=== PATIENT | female | born 1955 | race Caucasian/White ===

== ENCOUNTER 2018-08-05 19:47 | Inpatient (IN) ==
--- NOTE | 2018-08-05 20:58 | ED ---
HPI General Chief Complaint: Fall Stated Complaint: fall-L hip Time Seen by Provider: 08/05/18 20:46 Source: patient Mode of arrival: wheelchair Limitations: no limitations History of Present Illness HPI Narrative: 62-year-old white female presents emergency department for evaluation of left hip pain after a fall this afternoon sometime around 5:30 PM. She lives in [facility]. They opted to come to [place] for evaluation. The patient states that she has not been able to bear weight since the injury. She states that she was stepping down 2 sets of steps when her left hip popped causing her to fall down onto her hands and knees. She did not strike her head. She does not have any neck or back pain. No syncope. No chest pain or shortness of breath. She states the pain in her hip is moderate but can be severe with movement and palpation. Patient denies any numbness or tingling. Past medical history: Hypertension Surgical history: Denies Social history: Positive EtOH, positive tobacco Related Data Home Medications Medication Instructions Recorded Confirmed metoprolol tartrate 50 mg PO BID 08/05/18 08/05/18 Allergies Allergy/AdvReac Type Severity Reaction Status Date / Time No Known Allergies Allergy Verified 08/05/18 21:23 Review of Systems ROS: all other systems reviewed are negative [facility] Social History Social History Substance History: No History of Abuse Second Hand Smoke Exposure: Yes Smoking Status: Current every day smoker Tobacco Type: Cigarettes How Often Do You Have a Drink Containing Alcohol: 2 to 3 times a week Exam Narrative Exam Narrative: GENERAL: Well-developed, well-nourished in no apparent distress. Nontoxic appearing. HEAD: Normocephalic, atraumatic. EYES: Pupils equal round and reactive. Extraocular motions intact. No scleral icterus. No injection or drainage. ENT: Nose clear. Throat without erythema, tonsillar hypertrophy or exudate. Uvula midline. Airway patent. NECK: Trachea midline. Supple, nontender, moves head freely. No central bony tenderness or spasm. CARDIOVASCULAR: Regular rate and rhythm without murmurs, gallops, or rubs. RESPIRATORY: Clear to auscultation. Breath sounds equal bilaterally. No wheezes , rales, or rhonchi. GASTROINTESTINAL: Abdomen soft, non-tender, nondistended. No hepato-splenomegaly , or palpable masses. No guarding. EXTREMITIES: No clubbing, cyanosis, or edema. Patient complains of pain in the left hip. She has decreased range of motion due to pain. There is no obvious shortening or rotation. No pain in the knee, ankle or foot. She has intact sensation good distal pulses. She has abrasions over both knees and over the right wrist and palm. BACK: Nontender without deformity. No flank tenderness. NEUROLOGICAL: Awake, alert and oriented x 3 .Cranial nerves grossly intact. Motor and sensory grossly within normal limits. Normal speech. Course Initial Documented Vital Signs Temperature 98.7 F 08/05/18 20:40 Pulse Rate 72 08/05/18 20:40 Respiratory Rate 16 08/05/18 20:40 Blood Pressure 117/75 08/05/18 20:40 Pulse Oximetry 100 08/05/18 20:40 Last Documented Vital Signs Temperature 98.7 F 08/05/18 20:40 Pulse Rate 72 08/05/18 20:40 Respiratory Rate 18 08/05/18 20:57 Blood Pressure 117/75 08/05/18 20:40 Pulse Oximetry 100 08/05/18 20:40 Medical Decision Making MDM Narrative Medical decision making narrative: Patient's abrasions are cleansed and dressed by the nursing staff. Patient is given [place] 5 mg p.o. X-ray of the left hip. X-ray reveals a possible greater trochanter fracture. This is confirmed by CT. Patient has a large amount of arthritis as well as cystic structures in the acetabulum and the femoral head. The case has been discussed with Dr. Guerra. She has recommended that the patient be admitted to the hospital for pain control and orthopedic evaluation. I discussed this with the patient who is agreed to stay for admission. I discussed the case with Dr. Rodrigues who is agreed to place the patient in observation and have orthopedic consult. Medical Screen Exam Complete: Yes Emergency Medical Condition: Yes Differential Diagnosis Differential Diagnosis: MDM: High Differential diagnoses: Fracture, sprain, strain, dislocation, contusion, neurovascular injury Lab Data Result diagrams: 08/05/18 22:58 08/05/18 22:58 Lab Results 08/05/18 08/05/18 08/05/18 Range/Units 22:58 22:58 22:58 WBC 6.7 (4.0-11.0) th/mm3 RBC 3.91 L (4.00-5.30) mil/mm3 Hgb 13.5 (11.6-15.3) gm/dL Hct 38.6 (35.0-46.0) % MCV 98.8 (80.0-100.0) fL MCH 34.6 H (27.0-34.0) pg MCHC 35.0 (32.0-36.0) % RDW 13.5 (11.6-17.2) % Plt Count 212 (150-450) th/mm3 MPV 8.1 (7.0-11.0) fL Neut % (Auto) 58.2 (16.0-70.0) % Lymph % (Auto) 31.5 (9.0-44.0) % [place] % (Auto) 7.7 (0.0-8.0) % Eos % (Auto) 1.7 (0.0-4.0) % Baso % (Auto) 0.9 (0.0-2.0) % Neut # (Auto) 3.9 (1.8-7.7) th/mm3 Lymph # (Auto) 2.1 (1.0-4.8) th/mm3 [place] # (Auto) 0.5 (0.0-0.9) th/mm3 Eos # (Auto) 0.1 (0.0-0.4) th/mm3 Baso # (Auto) 0.1 (0.0-0.2) th/mm3 WBC Differential . Differential Comment Auto diff final PT 9.6 L (9.8-11.6) sec INR 0.9 Ratio Sodium 137 (136-145) meq/L Potassium 3.7 (3.5-5.1) meq/L Chloride 103 (98-107) meq/L Carbon Dioxide 25.3 (21.0-32.0) meq/L Anion Gap 9 (5-15) meq/L BUN 22 H (7-18) mg/dL Creatinine 0.81 (0.50-1.00) mg/dL Estimated GFR 72 L (>89) mL/min Random Glucose 74 (74-106) mg/dL Calcium 8.9 (8.5-10.1) mg/dL Total Bilirubin 0.2 (0.2-1.0) mg/dL AST 27 (15-37) U/L ALT 20 (10-53) U/L Alkaline Phosphatase 115 (45-117) U/L Total Protein 8.0 (6.4-8.2) g/dL Albumin 3.5 (3.4-5.0) g/dL Imaging Data Radiologist's impression: Hip X-Ray 08/05/18 20:51 CONCLUSION: Minimal area of cortical disruption seen at the lateral aspect of the greater trochanter. Subtle fracture in may be present. Chronic severe degenerative change. Hip CT 08/05/18 21:26 CONCLUSION: 1. Mildly displaced fracture of the greater trochanter without visible extension into the femoral neck. 2. Advanced osteoarthritis at the left hip joint with marked joint space narrowing, sclerosis and extensive subchondral cyst or geode formation. Discharge Plan Discharge Disposition Patient Disposition: 30 Still Patient Discharge Condition Condition: Stable Physicians Team ED Provider: Linda Guerra ED Midlevel Provider: Melchor Jeter Primary Care Provider: UNKNOWN, Attending Provider: Faiza Rodrigues Other Providers: Adria Ha Status ED Status: Left Department Discharge Information Discharge Date/Time: 08/06/18 00:01
--- NOTE | 2018-08-05 21:23 | XR ---
EXAM DATE: 08/05/2018 9:10 PM EDT AGE/SEX: 62 years / Female INDICATIONS: Fall. CLINICAL DATA: This is the patient's initial encounter. Patient reports that signs and symptoms have been present for 1 day and indicates a pain score of 8/10. MEDICAL/SURGICAL HISTORY: None. None. COMPARISON: No prior exams available for comparison. FINDINGS: There is chronic flattening of the superior aspect of the left femoral head. There is some flattening of the superior aspect of the left acetabulum. The left hip joint space is severely narrowed superio rly. There is cystic change at the superior acetabulum and superior aspect of the femoral head. There are some hypertrophic change at the superior lateral aspect of the femoral head. There are small 4 m m bony densities seen inferior to the femoral head likely related to either hypertrophic change or lo ose bodies. On the AP view, there is questionable area of cortical disruption seen at the lateral aspect of the g reater trochanter. No other potential fracture is seen on this plain film examination. CONCLUSION: Minimal area of cortical disruption seen at the lateral aspect of the greater trochanter. Subtle frac ture in may be present. Chronic severe degenerative change. Electronically signed by: Adam Tamayo MD 08/05/2018 9:22 PM EDT
--- NOTE | 2018-08-05 22:17 | CT ---
EXAM DATE: 08/05/2018 10:08 PM EDT AGE/SEX: 62 years / Female INDICATIONS: Fall today, left hip pain. CLINICAL DATA: This is the patient's initial encounter. Patient reports that signs and symptoms have been present for 1 day and indicates a pain score of 7/10. MEDICAL/SURGICAL HISTORY: Hypertension. None. RADIATION DOSE: 7.49 CTDI (mGy) COMPARISON: No prior exams available for comparison. TECHNIQUE: Multiple contiguous axial images were acquired using a multirow detector CT scanner witho ut contrast. Multiplanar reconstruction was performed in the sagittal and coronal planes. Using aut omated exposure control and adjustment of the mA and/or kV according to patient size, radiation dose was kept as low as reasonably achievable to obtain optimal diagnostic quality images. DICOM format i mage data is available electronically for review and comparison. FINDINGS: There is a mildly displaced fracture through the greater trochanter. No extension into the femoral ne ck is identified. There is advanced osteoarthritis at the hip joint with some lateral subluxation. Th ere is marked joint space narrowing, sclerosis and extensive subchondral cyst or geode formation with osteophytes. Bones are mildly osteopenic. CONCLUSION: 1. Mildly displaced fracture of the greater trochanter without visible extension into the femoral ne ck. 2. Advanced osteoarthritis at the left hip joint with marked joint space narrowing, sclerosis and ex tensive subchondral cyst or geode formation. Electronically signed by: Melchor Layton MD 08/05/2018 10:15 PM EDT
[2018-08-05] MEDS ORDERED: Morphine Inj 4 MG/ML Vial IV.PUSH ONE (22:33)
[2018-08-05] MEDS ORDERED: Morphine Sulfate Inj 2 MG/ML Vial IV.PUSH PRN (22:39)
[2018-08-05] MEDS ORDERED: Acetaminophen 325 MG Tablet PO PRN (22:40)
[2018-08-05] MEDS ORDERED: Bisacodyl 10 MG Supp RECTAL PRN (22:40)
--- NOTE | 2018-08-05 22:42 | P.HPIM ---
History of Present Illness Primary Care Physician: UNKNOWN History of Present Illness: This is a 62-year-old female with a PMH of HTN and Tobacco Abuse who was brought to the ER for left hip pain after a fall. Patient states she has had chronic left hip pain for several years, no previous injury or trauma. Today, states she heard a "pop" then fell to the floor. No LOC or head trauma. Reports severe pain, 10/10, non-radiating, worse w/ movement, unable to bare weight. On arrival, BP 117/75, HR 72, O2 sat 100% on RA, Afebrile. Labs pending. Hip X-ray minimal area of cortical disruption at greater trochanter, subtle fracture may be present. CT Hip mildly displaced fracture of greater trochanter without extension into the femoral neck, advanced arthritis of left hip joint with marked joint space narrowing. S/p Morphine w/ some improvement in pain complaints. - Diagnosis (1) Fall (2) Hip fracture, left (3) Tobacco abuse Review of Systems PAST FAMILY HISTORY: Reviewed. No h/o DM or CAD All other systems reviewed negative except as stated in HPI [facility] - History History Provided By: Patient - Medical History Medical History: Medical History (Last Reviewed 08/05/18 @ 21:00 by MERRY Delcid) Hypertension - Surgical History Surgical History: Surgical History (Last Reviewed 08/05/18 @ 21:00 by MERRY Delcid) No history of previous surgery - Tobacco History Tobacco Use In Past 30 Days: Yes Smoking Status: Current every day smoker Tobacco Type: Cigarettes - Alcohol History How Often Do You Have a Drink Containing Alcohol: 2 to 4 times a month - Immunization History Tetanus Immunization: <5 Years Medications and Allergies Active Medications: Active Medications Acetaminophen (Tylenol) 650 mg PO Q4H PRN PRN Reason: Temp > 100.4 Hydrocodone Bitart/Acetaminophen ([place] 5/325) 1 tab PO Q4H PRN PRN Reason: PAIN 3-5 Al Hydroxide/Mg Hydroxide (Milk Of Magnesia Liq) 30 ml PO Q12H PRN PRN Reason: Mild Constipation Bisacodyl (Dulcolax Supp) 10 mg RECTAL DAILY PRN PRN Reason: SEVERE CONSITIPATION Sodium Chloride (Ns Inj) 1,000 mls @ 100 mls/hr IV.CONT .Q10H LANI Lactulose (Lactulose Liq) 30 ml PO DAILY PRN PRN Reason: SEVERE CONSITIPATION Morphine Sulfate (Morphine Inj) 2 mg IV.PUSH Q4H PRN PRN Reason: PAIN 6-10 Ondansetron HCl (Zofran Inj) 4 mg IV.PUSH Q6H PRN PRN Reason: NAUSEA OR VOMITING Senna/Docusate Sodium (Judy-Colace) 1 tab PO BID LANI Sennosides (Senokot) 17.2 mg PO Q12H PRN PRN Reason: Moderate Constipation Allergies Allergy/AdvReac Type Severity Reaction Status Date / Time No Known Allergies Allergy Verified 08/05/18 21:23 Exam Vital signs: Vital Signs 08/05/18 20:40 08/05/18 20:57 Temperature 98.7 F Pulse Rate 72 Respiratory Rate 16 18 Blood Pressure 117/75 Pulse Oximetry 100 Intake & Output 08/05/18 08/05/18 08/06/18 06:59 18:59 06:59 Weight 47.627 kg Narrative: PE: GENERAL: Middle-aged white female in no acute distress. Smells of tobacco. Friend at bedside. SKIN: Focused skin assessment warm and dry. HEENT: PERRLA, EOMI. No scleral icterus or conjunctival pallor. No lid lag or facial droop. CARDIOVASCULAR: Regular rate and rhythm. No obvious murmurs to auscultation. No chest tenderness to palpation. RESPIRATORY: No obvious rhonchi or wheezing. Clear to auscultation. Breath sounds equal bilaterally. GASTROINTESTINAL: Abdomen soft, non-tender, nondistended. BS normal. MUSCULOSKELETAL: Extremities without clubbing, cyanosis, or edema. No obvious deformities. Decreased ROM of LLE due to injury. Pulses intact. NEUROLOGICAL: Awake, alert and oriented x4. No focal neurologic deficits. Moving both upper and lower extremities spontaneously. PSYCHIATRIC: Appropriate mood and affect. Insight and judgment normal. Results - Imaging Impressions Hip X-Ray 08/05/18 20:51 CONCLUSION: Minimal area of cortical disruption seen at the lateral aspect of the greater trochanter. Subtle fracture in may be present. Chronic severe degenerative change. Hip CT 08/05/18 21:26 CONCLUSION: 1. Mildly displaced fracture of the greater trochanter without visible extension into the femoral neck. 2. Advanced osteoarthritis at the left hip joint with marked joint space narrowing, sclerosis and extensive subchondral cyst or geode formation. Caprini VTE Risk Assessment Caprini VTE Risk Assessment: No/Low Risk (score <= 1) Caprini Risk Assessment Model: Point Value = 1 Point Value = 2 Point Value = 3 Point Value = 5 Age 41-60 Minor surgery BMI > 25 kg/m2 Swollen legs Varicose veins or History of unexplained or recurrent spontaneous Oral contraceptives or hormone replacement Sepsis (< 1 month) Serious lung disease, including pneumonia (< 1 month) Abnormal pulmonary function Acute myocardial infarction Congestive heart failure (< 1 month) History of inflammatory bowel disease Medical patient at bed rest Age 61-74 Arthroscopic surgery Major open surgery (> 45 min) Laparoscopic surgery (> 45 min) Malignancy Confined to bed (> 72 hours) Immobilizing plaster cast Central venous access Age >= 75 History of VTE Family history of VTE Factor V Leiden Prothrombin [id number] Lupus anticoagulant Anticardiolipin antibodies Elevated serum homocysteine Heparin-induced thrombocytopenia Other congenital or acquired thrombophilia Stroke (< 1 month) Elective arthroplasty Hip, pelvis, or leg fracture Acute spinal cord injury (< 1 month) Prophylaxis Regimen: Total Risk Factor Score Risk Level Prophylaxis Regimen 0-1 Low Early ambulation 2 Moderate Order ONE of the following: *Sequential Compression Device (SCD) *Heparin 5000 units SQ BID 3-4 Higher Order ONE of the following medications: *Heparin 5000 units SQ TID *Enoxaparin/Lovenox 40 mg SQ daily (WT < 150 kg, CrCl > 30 mL/min) *Enoxaparin/Lovenox 30 mg SQ daily (WT < 150 kg, CrCl > 10-29 mL/min) *Enoxaparin/Lovenox 30 mg SQ BID (WT < 150 kg, CrCl > 30 mL/min) AND/OR *Sequential Compression Device (SCD) 5 or more Highest Order ONE of the following medications: *Heparin 5000 units SQ TID (Preferred with Epidurals) *Enoxaparin/Lovenox 40 mg SQ daily (WT < 150 kg, CrCl > 30 mL/min) *Enoxaparin/Lovenox 30 mg SQ daily (WT < 150 kg, CrCl > 10-29 mL/min) *Enoxaparin/Lovenox 30 mg SQ BID (WT < 150 kg, CrCl > 30 mL/min) AND *Sequential Compression Device (SCD) Assessment and Plan - Assessment (1) Fall Code(s): W19.XXXA - Unspecified fall, initial encounter Status: Acute (2) Hip fracture, left Code(s): S72.002A - Fracture of unspecified part of neck of left femur, initial encounter for closed fracture Status: Acute (3) Tobacco abuse Code(s): Z72.0 - Tobacco use Status: Acute - Plan A/P: 1. Fall: s/p mechanical fall, no LOC or head trauma, no other injuries reported. 2. Left Hip Fx: X-ray w/ possible subtle fracture, CT Hip w/ mildly displaced fracture of greater trochanter without extension into femoral neck, advanced osteoarthritis of left hip joint w/ marked joint space narrowing, images reviewed. Consult Ortho for further eval/intervention. NPO, IVF, analgesics/ antiemetics as needed. Follow up pre-op labs. 3. Tobacco Abuse: Pt counselled. NicoDerm prn if needed. 4. DVT Prophylaxis: Anticoagulation post op 5. Social work for d/c planning as needed. 6. Case discussed w/ ER physician at length, labs/records/imaging reviewed by me.
[2018-08-05] MEDS ORDERED: Sodium Chloride 0.9% 2 ML Flush PRN IV.FLUSH (22:45)
[2018-08-05] MEDS: Sod Chloride 0.9% Inj 1,000 ML IV.CONT SCH (23:53)
[2018-08-06 00:20] LABS: Baso # (Auto) 0.1 th/mm3 (0.0-0.2); Baso % (Auto) 0.9 % (0.0-2.0); Eos # (Auto) 0.1 th/mm3 (0.0-0.4); Eos % (Auto) 1.7 % (0.0-4.0); Hematocrit 38.6 % (35.0-46.0); Hemoglobin 13.5 gm/dL (11.6-15.3); Lymph # (Auto) 2.1 th/mm3 (1.0-4.8); Lymph % (Auto) 31.5 % (9.0-44.0); Mean Corpuscular Hemoglobin 34.6 pg (27.0-34.0); Mean Corpuscular Volume 98.8 fL (80.0-100.0); Mean Platelet Volume 8.1 fL (7.0-11.0); Mono # (Auto) 0.5 th/mm3 (0.0-0.9); Mono % (Auto) 7.7 % (0.0-8.0); Neut # (Auto) 3.9 th/mm3 (1.8-7.7); Neut % (Auto) 58.2 % (16.0-70.0); Platelet Count 212 th/mm3 (150-450); Red Blood Count 3.91 mil/mm3 (4.00-5.30); Red Cell Distribution Width 13.5 % (11.6-17.2); White Blood Count 6.7 th/mm3 (4.0-11.0)
[2018-08-06 00:29] LABS: INR 0.9 Ratio; Prothrombin Time 9.6 sec (9.8-11.6)
[2018-08-06 00:39] LABS: Albumin 3.5 g/dL (3.4-5.0); Anion Gap 9 meq/L (5-15); Aspartate Aminotransferase 27 U/L (15-37); Blood Urea Nitrogen 22 mg/dL (7-18); Calcium 8.9 mg/dL (8.5-10.1); Carbon Dioxide 25.3 meq/L (21.0-32.0); Chloride 103 meq/L (98-107); Glomerular Filtration Rate 72 mL/min (>89); Glucose,Random 74 mg/dL (74-106); Potassium 3.7 meq/L (3.5-5.1); Sodium 137 meq/L (136-145)
[2018-08-06 00:41] LABS: Alanine Aminotransferase 20 U/L (10-53)
[2018-08-06 00:43] LABS: Alkaline Phosphatase 115 U/L (45-117)
--- NOTE | 2018-08-06 08:54 | P.CONOP ---
[facility] Orthopedics Consult Note - [facility] Consult date: 08/06/18 Consult reason: fracture Chief complaint: Left greater trochanteric fracture Narrative: 62-year-old female with a past medical history of hypertension and tobacco abuse presented to the emergency department yesterday evening after a "fall" incident in regards to her left hip. Patient states that she knows that she has a "bad hip" and she tries to "nurse it", since patient does not have insurance. Patient states yesterday she felt a "pop" and subsequently was unable to put pressure and/or ambulate on her left hip. She did not describe the episode as a trip and fall to me. Patient states she has been able to successfully ambulate with a walker independently to use the restroom last night and this morning. Patient is somewhat dismissive and is not very interested in follow-up care. Review of Systems All other systems reviewed negative except as stated in [facility] - History History Provided By: Patient - Medical History Medical History: Medical History (Last Reviewed 08/05/18 @ 21:00 by MERRY Delcid) Hypertension - Surgical History Surgical History: Surgical History (Last Reviewed 08/05/18 @ 21:00 by MERRY Delcid) No history of previous surgery - Tobacco History Second Hand Smoke Exposure: Yes Tobacco Use In Past 30 Days: Yes Smoking Status: Current every day smoker Tobacco Type: Cigarettes - Alcohol History How Often Do You Have a Drink Containing Alcohol: 2 to 3 times a week - Substance Use History Substance History: No History of Abuse - Immunization History Tetanus Immunization: <5 Years Hx Influenza Vaccine This Season: No Medications and Allergies Active Medications: Active Medications Acetaminophen (Tylenol) 650 mg PO Q4H PRN PRN Reason: Temp > 100.4 Hydrocodone Bitart/Acetaminophen ([place] 5/325) 1 tab PO Q4H PRN PRN Reason: PAIN 3-5 Al Hydroxide/Mg Hydroxide (Milk Of Magnesia Liq) 30 ml PO Q12H PRN PRN Reason: Mild Constipation Bisacodyl (Dulcolax Supp) 10 mg RECTAL DAILY PRN PRN Reason: SEVERE CONSITIPATION Sodium Chloride (Ns Inj) 1,000 mls @ 100 mls/hr IV.CONT .Q10H [facility] Last Admin: 08/05/18 23:53 Dose: 100 mls/hr Lactulose (Lactulose Liq) 30 ml PO DAILY PRN PRN Reason: SEVERE CONSITIPATION Morphine Sulfate (Morphine Inj) 2 mg IV.PUSH Q4H PRN PRN Reason: PAIN 6-10 Ondansetron HCl (Zofran Inj) 4 mg IV.PUSH Q6H PRN PRN Reason: NAUSEA OR VOMITING Senna/Docusate Sodium (Judy-Colace) [address] [facility] Sennosides (Senokot) 17.2 mg PO Q12H PRN PRN Reason: Moderate Constipation Sodium Chloride (Ns Flush) 2 ml IV.FLUSH BID LANI Sodium Chloride (Ns Flush) 2 ml IV.FLUSH PRN PRN PRN Reason: FLUSH AFTER USING IV ACCESS Allergies Allergy/AdvReac Type Severity Reaction Status Date / Time No Known Allergies Allergy Verified 08/05/18 21:23 Home Medications Medication Instructions Recorded Confirmed Type metoprolol tartrate 50 mg PO BID 08/05/18 08/05/18 History Exam Vital signs: Vital Signs 08/05/18 20:40 08/05/18 20:57 08/06/18 00:20 Temperature 98.7 F 97.8 F Pulse Rate 72 60 Respiratory Rate 16 18 18 Blood Pressure 117/75 104/56 L Pulse Oximetry 100 93 L 08/06/18 06:30 Temperature Pulse Rate Respiratory Rate 17 Blood Pressure Pulse Oximetry Intake & Output 08/05/18 08/06/18 08/06/18 18:59 06:59 18:59 Weight 49 kg Other: # Voids 1 Date of Last Bowel Movement 08/05/18 Weight On Admission 48.761 kg Narrative: LLE: Mild palpable tenderness over the greater trochanteric region, slight pain with passive range of motion of hip, patient is able to successfully stand on her own, leg is in normal alignment, negative Homans sign, no calf pain, neurovascularly intact No other muscular skeletal injuries identified Results - Labs Result Diagrams: 08/05/18 22:58 08/05/18 22:58 Labs: Laboratory Results - last 24 hr 08/05/18 08/05/18 08/05/18 22:58 22:58 22:58 WBC 6.7 RBC 3.91 L Hgb 13.5 Hct 38.6 MCV 98.8 MCH 34.6 H MCHC 35.0 RDW 13.5 Plt Count 212 MPV 8.1 Neut % (Auto) 58.2 Lymph % (Auto) 31.5 [place] % (Auto) 7.7 Eos % (Auto) 1.7 Baso % (Auto) 0.9 Neut # (Auto) 3.9 Lymph # (Auto) 2.1 [place] # (Auto) 0.5 Eos # (Auto) 0.1 Baso # (Auto) 0.1 WBC Differential . Differential Comment Auto diff final PT 9.6 L INR 0.9 Sodium 137 Potassium 3.7 Chloride 103 Carbon Dioxide 25.3 Anion Gap 9 BUN 22 H Creatinine 0.81 Estimated GFR 72 L Random Glucose 74 Calcium 8.9 Total Bilirubin 0.2 AST 27 ALT 20 Alkaline Phosphatase 115 Total Protein 8.0 Albumin 3.5 - Diagnostic results Imaging: Impressions Hip X-Ray 08/05/18 20:51 CONCLUSION: Minimal area of cortical disruption seen at the lateral aspect of the greater trochanter. Subtle fracture in may be present. Chronic severe degenerative change. Hip CT 08/05/18 21:26 CONCLUSION: 1. Mildly displaced fracture of the greater trochanter without visible extension into the femoral neck. 2. Advanced osteoarthritis at the left hip joint with marked joint space narrowing, sclerosis and extensive subchondral cyst or geode formation. Assessment and Plan - Assessment and Plan The findings were discussed with the patient. Dr Adria Ha has reviewed images and details of this case. Recommendations are given for non-operative management at this time. Progress physical therapy for mobilization and pain control. Weight bearing as tolerated, encourage passive range of motion, do not encourage aggressive active range of motion. Continue pain control. Recommended orthopedic follow up in 7-10 days. Further displacement of the fracture site may require fixation. The possibility of future surgical treatment was discussed with the patient in detail, the patient acknowledges full understanding. 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 Okay to feed patient. Orthopedic clear for discharge at this time. Appreciate orthopedic involvement in patient's care.
[2018-08-06] MEDS ORDERED: Sodium Chloride 0.9% 2 ML Flush BID IV.FLUSH SCH (09:00)
[2018-08-06] MEDS ORDERED: Senna/Docusate Sodium 8.6/50 MG Tablet PO SCH (09:00)
[2018-08-06] MEDS: Sod Chloride 0.9% Inj 1,000 ML IV.CONT SCH (09:06)
[2018-08-06] MEDS ORDERED: Enoxaparin Inj 40 MG/0.4 ML Syringe SQ SCH (09:15)
--- NOTE | 2018-08-06 09:24 | P.PN ---
Subjective Interval history: Follow up for fall/left hip pain-patient seen and examined, complains of left groin pain with hip abduction. Does not want to move. Has been out of bed ambulating with walker. Patient refusing to take pain medicine, after discussion she agrees to take p.o. narcotic before PT evaluation. Was seen by orthopedic surgery this morning, nonoperative management was recommended. Patient wants to go home today. No chest pain, no shortness of breath, no nausea, no vomiting, diarrhea. No fever. States that she can go and stay with her mother. Patient lives alone Physical Exam Vital signs: Vital Signs 08/05/18 20:40 08/05/18 20:57 08/06/18 00:20 Temperature 98.7 F 97.8 F Pulse Rate 72 60 Respiratory Rate 16 18 18 Blood Pressure 117/75 104/56 L Pulse Oximetry 100 93 L 08/06/18 06:30 08/06/18 08:00 Temperature 97.8 F Pulse Rate 67 Respiratory Rate 17 16 Blood Pressure 160/67 H Pulse Oximetry 97 Intake & Output 08/05/18 08/06/18 08/06/18 18:59 06:59 18:59 Weight 49 kg Other: # Voids 1 Date of Last Bowel Movement 08/05/18 Weight On Admission 48.761 kg Narrative: GENERAL: Well-nourished, well-developed patient in no apparent distress. SKIN: Warm and dry. HEAD: Atraumatic. Normocephalic. EYES: Pupils equal and round. No scleral icterus. No injection or drainage. ENT: No nasal bleeding or discharge. Mucous membranes pink and moist. NECK: Trachea midline. No JVD. CARDIOVASCULAR: Regular rate and rhythm. RESPIRATORY: Breath sounds diminished at bases. Nonproductive cough. GASTROINTESTINAL: Abdomen soft, non-tender, nondistended. Hepatic and splenic margins not palpable. MUSCULOSKELETAL: Pain with passive range of motion during hip abduction, no deformity noted. Intact left pedal pulse 2+. Intact sensation to the left foot. No other joint abnormalities. NEUROLOGICAL: Awake and alert. No obvious cranial nerve deficits. Motor grossly within normal limits. Five out of 5 muscle strength in the arms and legs. Normal speech. PSYCHIATRIC: Appropriate mood and affect; insight and judgment normal. Results - Labs CBC & Chem 7: 08/05/18 22:58 08/05/18 22:58 Laboratory Results - last 24 hr 08/05/18 08/05/18 08/05/18 22:58 22:58 22:58 WBC 6.7 RBC 3.91 L Hgb 13.5 Hct 38.6 MCV 98.8 MCH 34.6 H MCHC 35.0 RDW 13.5 Plt Count 212 MPV 8.1 Neut % (Auto) 58.2 Lymph % (Auto) 31.5 [place] % (Auto) 7.7 Eos % (Auto) 1.7 Baso % (Auto) 0.9 Neut # (Auto) 3.9 Lymph # (Auto) 2.1 [place] # (Auto) 0.5 Eos # (Auto) 0.1 Baso # (Auto) 0.1 WBC Differential . Differential Comment Auto diff final PT 9.6 L INR 0.9 Sodium 137 Potassium 3.7 Chloride 103 Carbon Dioxide 25.3 Anion Gap 9 BUN 22 H Creatinine 0.81 Estimated GFR 72 L Random Glucose 74 Calcium 8.9 Total Bilirubin 0.2 AST 27 ALT 20 Alkaline Phosphatase 115 Total Protein 8.0 Albumin 3.5 - Imaging Impressions Hip X-Ray 08/05/18 20:51 CONCLUSION: Minimal area of cortical disruption seen at the lateral aspect of the greater trochanter. Subtle fracture in may be present. Chronic severe degenerative change. Hip CT 08/05/18 21:26 CONCLUSION: 1. Mildly displaced fracture of the greater trochanter without visible extension into the femoral neck. 2. Advanced osteoarthritis at the left hip joint with marked joint space narrowing, sclerosis and extensive subchondral cyst or geode formation. Assessment and Plan - Assessment (1) Fall Code(s): W19.XXXA - Unspecified fall, initial encounter Status: Acute (2) Hip fracture, left Code(s): S72.002A - Fracture of unspecified part of neck of left femur, initial encounter for closed fracture Status: Acute (3) Tobacco abuse Code(s): Z72.0 - Tobacco use Status: Acute - Plan 62-year-old female with a PMH of HTN and Tobacco Abuse who was brought to the ER for left hip pain after a fall. Patient states she has had chronic left hip pain for several years, no previous injury or trauma. States she heard a "pop" then fell to the floor. No LOC or head trauma. Reports severe pain, 10/10, non -radiating, worse w/ movement, unable to bare weight. On arrival, BP 117/75, HR 72, O2 sat 100% on RA, Afebrile. Labs pending. Hip X-ray minimal area of cortical disruption at greater trochanter, subtle fracture may be present. CT Hip mildly displaced fracture of greater trochanter without extension into the femoral neck, advanced arthritis of left hip joint with marked joint space narrowing. S/p Morphine w/ some improvement in pain complaints. Fall- s/p mechanical fall, no LOC or head trauma, no other injuries reported. Left Hip Fx: X-ray w/ possible subtle fracture, CT Hip w/ mildly displaced fracture of greater trochanter without extension into femoral neck, advanced osteoarthritis of left hip joint w/ marked joint space narrowing, images reviewed. -Appreciate also input, nonoperative management recommended. Can follow-up in 7 -10 days. -Resume diet Continue with pain management Physical therapy evaluation Tobacco Abuse: Pt counselled. -NicoDerm prn if needed. Hypertension, blood pressure stable Continue with metoprolol DVT Prophylaxis: SCDs for now, if pt. remains, will be put on [employer] Case management consultation for discharge planning. Patient has no payer source, she will be given a walker. We will wait for PT evaluation to make discharge plan Patient insisted on going home today, states that she can stay with her mother. Code Status: Full code Discussed Condition With: RN, pt, CM Discharge Planning: Poss dc home today after PT eval. [employer] Prescription Drug Monitoring Database has been queried and verified prior to prescribing the controlled substance. Acute pain exception. This patient has normal, predicted, physiological, and time limited response to an adverse mechanical stimulus associated with surgery, trauma, or acute illness as described in my notes. There is a lack of alternative treatment options other than to include the prescribed narcotic treatment for this condition. Last prescription was tramadol 50 mg, 120 tabs for 30 days March 15, 2018. [employer] Prescription Drug Monitoring Database has been queried and verified prior to prescribing the controlled subsection. Patient is having significant pain caused by [mildly displaced fracture of greater trochanter, status post mechanical fall] which will last more than 3 days. Trial of alternative treatment options other than prescribed opioids has not helped. I believe that it is medically necessary to treat the patients pain because it is affecting patients ability to [perform activities of daily living, ambulation.].
[2018-08-06 11:24] LABS: Bilirubin,Urine Negative (Negative); Clarity,Urine Clear (Clear); Color,Urine Yellow (Yellw/Straw); Glucose,Urine (UA) Negative (Negative); Leukocyte Esterase,Urine Negative (Negative); Nitrite,Urine Negative (Negative); Specific Gravity,Urine 1.012 (1.002-1.035)
--- NOTE | 2018-08-06 17:46 | P.DS ---
Date of admission: 08/05/18 22:40 Primary care physician: UNKNOWN Attending physician on discharge: Edgar Mitchell Anticipated date of discharge: 08/06/18 Brief History from admission: This is a 62-year-old female with a PMH of HTN and Tobacco Abuse who was brought to the ER for left hip pain after a fall. Patient states she has had chronic left hip pain for several years, no previous injury or trauma. Today, states she heard a "pop" then fell to the floor. No LOC or head trauma. Reports severe pain, 10/10, non-radiating, worse w/ movement, unable to bare weight. On arrival, BP 117/75, HR 72, O2 sat 100% on RA, Afebrile. Labs pending. Hip X-ray minimal area of cortical disruption at greater trochanter, subtle fracture may be present. CT Hip mildly displaced fracture of greater trochanter without extension into the femoral neck, advanced arthritis of left hip joint with marked joint space narrowing. S/p Morphine w/ some improvement in pain complaints. DS: Diagnosis - Discharge Diagnosis (1) Fall Status: Acute (2) Hip fracture, left Status: Acute (3) Tobacco abuse Status: Acute DS: Medications - Discharge Medications Prescriptions: tramadol 50 mg PO Q6H 7 Days #28 tab DS: Summary Hospital Course: 62-year-old female with a PMH of HTN and Tobacco Abuse who was brought to the ER for left hip pain after a fall. Patient states she has had chronic left hip pain for several years, no previous injury or trauma. States she heard a "pop" then fell to the floor. No LOC or head trauma. Reported severe pain, 10/10, non-radiating, worse w/ movement, unable to bare weight. On arrival, BP 117/75 , HR 72, O2 sat 100% on RA, Afebrile. Labs okay. Hip X-ray minimal area of cortical disruption at greater trochanter, subtle fracture may be present. CT Hip mildly displaced fracture of greater trochanter without extension into the femoral neck, advanced arthritis of left hip joint with marked joint space narrowing. S/p Morphine w/ some improvement in pain complaints. Patient kept n.p.o. overnight. Orthopedic consulted, put on appropriate pain management. She was evaluated by orthopedic, nonoperative management was recommended. Patient will eventually need hip replacement however it could be done as as elective. She was to follow-up in 7-10 days. Physical therapy was consulted, they assisted with ambulating patient. Patient was able to ambulate with walker. Pt. wanted to go home. She was given a walker and PT provided instructions on mobility. She was counselled to stop smoking. She was reluctant. She was discharged home in stable condition. - Time Spent with Patient Total time spent providing and/or coordinating discharge services: Less than 30 minutes - Quality: VTE Deep Vein Thrombosis/Pulmonary Embolism Present on Admission: No Exam Vital signs: Vital Signs 08/05/18 20:40 08/05/18 20:57 08/06/18 00:20 Temperature 98.7 F 97.8 F Pulse Rate 72 60 Respiratory Rate 16 18 18 Blood Pressure 117/75 104/56 L Pulse Oximetry 100 93 L 08/06/18 06:30 08/06/18 08:00 08/06/18 12:00 Temperature 97.8 F 98.5 F Pulse Rate 67 52 L Respiratory Rate 17 16 16 Blood Pressure 160/67 H 137/72 Pulse Oximetry 97 98 Intake & Output 08/05/18 08/06/18 08/06/18 18:59 06:59 18:59 Weight 49 kg Other: # Voids 1 Date of Last Bowel Movement 08/05/18 08/05/18 Weight On Admission 48.761 kg Results Procedures completed during hospitalization: none Labs on day of discharge: Labs from last 24 hours 08/06/18 08/05/18 08/05/18 11:00 22:58 22:58 WBC RBC Hgb Hct MCV MCH MCHC RDW Plt Count MPV Neut % (Auto) Lymph % (Auto) [place] % (Auto) Eos % (Auto) Baso % (Auto) Neut # (Auto) Lymph # (Auto) [place] # (Auto) Eos # (Auto) Baso # (Auto) WBC Differential Differential Comment PT 9.6 L INR 0.9 Sodium 137 Potassium 3.7 Chloride 103 Carbon Dioxide 25.3 Anion Gap 9 BUN 22 H Creatinine 0.81 Estimated GFR 72 L Random Glucose 74 Calcium 8.9 Total Bilirubin 0.2 AST 27 ALT 20 Alkaline Phosphatase 115 Total Protein 8.0 Albumin 3.5 Urine Color Yellow Urine Clarity Clear Urine pH 6.0 Ur Specific [place] 1.012 Urine Protein 30 H Urine Glucose (UA) Negative Urine Ketones Negative Urine Occult Blood Moderate H Urine Nitrate Negative Urine Bilirubin Negative Urine Urobilinogen Less than 2 Ur Leukocyte Esterase Negative Urine RBC 1 Urine WBC 1 Micro UA Comment Culture not ind Ur Microscopic Review Not Reportable Urine Culture Comments Culture not ind 08/05/18 22:58 WBC 6.7 RBC 3.91 L Hgb 13.5 Hct 38.6 MCV 98.8 MCH 34.6 H MCHC 35.0 RDW 13.5 Plt Count 212 MPV 8.1 Neut % (Auto) 58.2 Lymph % (Auto) 31.5 [place] % (Auto) 7.7 Eos % (Auto) 1.7 Baso % (Auto) 0.9 Neut # (Auto) 3.9 Lymph # (Auto) 2.1 [place] # (Auto) 0.5 Eos # (Auto) 0.1 Baso # (Auto) 0.1 WBC Differential . Differential Comment Auto diff final PT INR Sodium Potassium Chloride Carbon Dioxide Anion Gap BUN Creatinine Estimated GFR Random Glucose Calcium Total Bilirubin AST ALT Alkaline Phosphatase Total Protein Albumin Urine Color Urine Clarity Urine pH Ur Specific [place] Urine Protein Urine Glucose (UA) Urine Ketones Urine Occult Blood Urine Nitrate Urine Bilirubin Urine Urobilinogen Ur Leukocyte Esterase Urine RBC Urine WBC Micro UA Comment Ur Microscopic Review Urine Culture Comments - Impressions ITS Impressions Hip X-Ray 08/05/18 20:51 CONCLUSION: Minimal area of cortical disruption seen at the lateral aspect of the greater trochanter. Subtle fracture in may be present. Chronic severe degenerative change. Hip CT 08/05/18 21:26 CONCLUSION: 1. Mildly displaced fracture of the greater trochanter without visible extension into the femoral neck. 2. Advanced osteoarthritis at the left hip joint with marked joint space narrowing, sclerosis and extensive subchondral cyst or geode formation. Discharge Plan - Discharge Disposition Patient Disposition: 01 Discharge Home - Discharge Condition Condition: Stable - Discharge Order Discharge Orders: Discharge Order (Routine); Ordered 08/06/18 Ordered By: Cindy Larson - Discharge Details Anticipated Discharge Date: 08/06/18 - Physicians Team Primary Care Provider: UNKNOWN, Attending Provider: Edgar Mitchell Other Providers: Adria Ha MD
[2018-08-06] MEDS ORDERED: Metoprolol Tartrate 50 MG Tablet PO SCH (21:00)
== END 2018-08-06 13:14 | disposition home or self-care (01) ==
LOC: NEPB 19:47 → NEDA 19:47 → N06 23:58
PROVIDERS: ADMIT Family Medicine; ATTEND Family Medicine